=== PATIENT | male | born 1980 | race Hispanic/Latino ===

== ENCOUNTER 2018-07-05 10:21 | Emergency (ER) | payer OTHER ==
[2018-07-05 10:41] VITALS: BP 115/70; PULSE 109; RESP 16; TEMP 97.6; O2SAT 97
[2018-07-05 10:42] VITALS: BMI 22.5
--- NOTE | 2018-07-05 11:52 | ED PDOC ---
Upper Extremity Pain/Injury Time Seen by Provider: 07/05/18 11:31 Chief Complaint (Nursing): Upper Extremity Problem/Injury Chief Complaint (Provider): Left Wrist Pain History Per: Patient History/Exam Limitations: no limitations Onset/Duration Of Symptoms: Days (x1) Current Symptoms Are (Timing): Still Present Additional Complaint(s): 37 year old male presents to the ED for evaluation of left wrist pain and swelling since falling last night around 2300. Patient notes that he tripped down one step and landed on his outstretched left hand, sustaining pain to the wrist since. Denies numbness, tingling, and other complaints. Past Medical History Reviewed: Historical Data, Nursing Documentation, Vital Signs Vital Signs: Last Vital Signs Temp 97.6 F 07/05/18 10:41 Pulse 109 H 07/05/18 10:41 Resp 16 07/05/18 10:41 BP 115/70 07/05/18 10:41 Pulse Ox 97 07/05/18 10:41 Primary Care Provider: Non [facility] Provider, - Medical History PMH: No Chronic Diseases - Surgical History Surgical History: No Surg Hx - Family History Family History: States: Unknown Family Hx - Home Medications Home Medications: Ambulatory Orders Medication Instructions Recorded Ibuprofen [Motrin] 600 mg PO Q6 PRN #20 tab 08/28/14 Ibuprofen [Motrin Tab] 600 mg PO TID #15 tab 07/05/18 - Allergies Allergies/Adverse Reactions: Allergies Allergy/AdvReac Type Severity Reaction Status Date / Time No Known Allergies Allergy Verified 08/28/14 16:25 Review of Systems ROS Statement: Except As Marked, All Systems Reviewed And Found Negative Musculoskeletal: Positive for: Other (left wrist pain and swelling) Neurological: Negative for: Numbness (or tingling) Physical Exam - Reviewed Nursing Documentation Reviewed: Yes Vital Signs Reviewed: Yes - Physical Exam Appears: Positive for: No Acute Distress Skin: Positive for: Normal Color, Warm Pulses-Radial (L): 2+ Pulses-Radial (R): 2+ Extremity: Positive for: Tenderness ((+) Mild swelling and tenderness over dorsal wrist), Capillary Refill (less than 2 seconds), Other (sensation intact to hand/fingers. fingers warm mobile). Negative for: Deformity Neurological/Psych: Negative for: Motor/Sensory Deficits - ECG O2 Sat by Pulse Oximetry: 97 (RA) Pulse Ox Interpretation: Normal Medical Decision Making Medical Decision Making: Initial Impression: left wrist injury, r/o fracture Time: 1152 Initial Plan: --Ibuprofen 600mg PO --Left wrist XR Wrist immobilized with orthoglass volar splint applied and molded by bean caraballo; good distal perfusion post splint. sling applied. Scribe Attestation: Documented by Sania Cheung, acting as a scribe for Radha Caraballo PA-C. Provider Scribe Attestation: All medical record entries made by the Scribe were at my direction and personally dictated by me. I have reviewed the chart and agree that the record accurately reflects my personal performance of the history, physical exam, m edical decision making, and the department course for this patient. I have also personally directed, reviewed, and agree with the discharge instructions and disposition. Disposition - Clinical Impression Clinical Impression: Wrist injury - Patient ED Disposition Is Patient to be Admitted: No Counseled Patient/Family Regarding: Diagnosis, Need For Followup - Disposition Referrals: Maurice Blancas III, MD [Staff Provider] - Disposition: Routine/Home Disposition Time: 13:34 Condition: STABLE Prescriptions: Ibuprofen [Motrin Tab] 600 mg PO TID #15 tab Instructions: Common Wrist Injuries (DC) Forms: [employer] (Armenian), [facility] ED School/Work Excuse
--- NOTE | 2018-07-05 18:59 | RAD ---
PROCEDURE: Left Wrist Radiographs. Three views. HISTORY: fall, wrist swelling COMPARISON: None available. FINDINGS: BONES: No acute displaced fracture. JOINTS: No dislocation. SOFT TISSUES: Unremarkable. No evidence of radiopaque foreign body OTHER FINDINGS: None. IMPRESSION: No acute displaced fracture, dislocation, or significant joint effusion identified. If symptoms persist, or if there is continued clinical concern, x-ray follow-up in 7-10 days should be considered.
== END 2018-07-05 13:54 | disposition home or self-care (01) ==
LOC: H.ER 10:21
DX: S69.92XA Unspecified injury of left wrist, hand and finger(s), initial encounter (principal); W19.XXXA Unspecified fall, initial encounter